=== PATIENT | female | born 1975 | race Two or more races ===

== ENCOUNTER 2017-02-23 08:57 | Emergency (ER) | payer OTHER ==
[2017-02-23 09:01] VITALS: BP 107/77; PULSE 74; TEMP 98.1; BMI 23.8
--- NOTE | 2017-02-23 09:23 | PDOC ---
History of Present Illness - General Chief Complaint: Pain, Acute Stated Complaint: RIGHT ABD PAIN Time Seen by Provider: 02/23/17 09:04 History Source: Patient Exam Limitations: No Limitations - History of Present Illness Travel History: No Initial Comments: 02/23/17 09:30 41y F no signfiicant pmhx presents with intermittent RLQ pain for about a month. The pt notes that the pain has been getting worse since tuesday in the RLQ and has been radiating to the flank and down to the groin, the pain does seem to wax and wane. She was taking ibuprofen initially with improvement of her pain but since tuesday it hasnt been as helpful. The pt endorsed mild nausea recently but non currently. no associated vomiting, diarrhea, dysuria, frequency. 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 Medical History Allergies/Adverse Reactions: Allergies Allergy/AdvReac Type Severity Reaction Status Date / Time No Known Allergies Allergy Verified 02/23/17 08:58 Home Medications: Ambulatory Orders NK [No Known Home Medication] 02/23/17 Other medical history: DENIES - Psycho/Social/Smoking Cessation Hx Anxiety: No Suicidal Ideation: No Smoking History: Never smoked Hx Alcohol Use: Yes Drug/Substance Use Hx: No Substance Use Type: Alcohol Review of Systems - Review of Systems Able to Perform ROS?: Yes Comments:: 02/23/17 09:33 Constitutional - no reported Fever, Chills, HEENT: no reported vision changes, sore throat Respiratory: no reported cough, sob, hemoptysis Cardiac: no reported chest pain, palpitations, light headedness, leg swelling Abd/GI: +abd pain, nausea, no reported vomiting, blood per rectum, melena, diarrhea : no reported dysuria, frequency, discharge Musculskelatal - no reported back pain, joint swelling skin - no reported bruising, erythema, rash neurological: no reported headache, numbness, focal weakness, tingling, ataxia, hematologic: no reported anemia, easy bruising, easy bleeding *Physical Exam - Vital Signs Last Vital Signs Temp Pulse Resp BP Pulse Ox 98.1 F 74 18 107/77 99 02/23/17 08:57 02/23/17 08:57 02/23/17 08:57 02/23/17 08:57 02/23/17 08:57 - Physical Exam Comments: 02/23/17 09:34 GENERAL: The patient is awake, alert, and fully oriented, Nontoxic - in no acute distress. HEAD: Normocephalic, atraumatic. EYES: extraocular movements intact, sclera anicteric, conjunctiva clear. ENT: Normal voice, Moist mucous membranes. NECK: Normal range of motion, supple LUNGS: Breath sounds equal, clear to auscultation bilaterally. No wheezes, no rhonchi, no rales. HEART: Regular rate and rhythm, normal S1 and S2 without murmur, rub or gallop. ABDOMEN: Soft, very mild rlq tenderness, normoactive bowel sounds. No guarding , no rebound. No CVA tenderness EXTREMITIES: Normal range of motion, no edema. No clubbing or cyanosis. No cords, erythema, or tenderness. NEUROLOGICAL: No facial assymetry, Normal speech, PSYCH: Normal mood, normal affect. SKIN: Warm, Dry, normal turgor, ED Treatment Course - LABORATORY CBC & Chemistry Diagram: 02/23/17 09:30 02/23/17 09:30 Medical Decision Making - Medical Decision Making 02/23/17 09:34 41y F no pmhx presents with RLQ pain that is intermittent w/o v/d, dysuira, f/c. on exam pt well appearing in no distress with mild RLQ tenderness suspect possible kidney stones due to duration of pain, doubt appendicitis will ck cbc, cmp, ua will r/o pt declines pain medications 02/23/17 10:10 pt does endorse the pain seems to be cyclicial but typically resolves with motrin but didnt today she has an appt with zain tomorrow @ [facility] 02/23/17 11:21 pts labs reviewd ua neative for hematuria pts abd pain still mild, repeat exam shows no tenderness. do not think this is consistent with appendicitis. discussed with patient, agrees and will defer more advanced imaging for now. obtain US shows complex cysts, possibly hemorraghic. will dc the pt to fu with her PMD tomorrow return precautions were discussed I discussed the physical exam findings, ancillary test results and final diagnoses with the patient. I answered all of the patient's questions. The patient was satisfied with the care received and felt comfortable with the discharge plan and treatment plan. The patient will call their primary care physician within 24 hours to arrange follow-up and will return to the Emergency Department with any new, persistent or worsening symptoms. *DC/Admit/Observation/Transfer Diagnosis at time of Disposition: Abdominal pain Qualifiers: Abdominal location: right lower quadrant Qualified Code(s): R10.31 - Right lower quadrant pain - Discharge Dispostion Disposition: HOME Condition at time of disposition: Improved Admit: No - Referrals Referrals: [facility] [Provider Group] - Patient Instructions Printed Discharge Instructions: DI for Abdominal Pain-Adult Additional Instructions: Return to the emergency department immediately with ANY new, persistent or worsening symptoms including any fevers, chills, nausea, vomiting, recurrent abdominal pain. Clinically I do not think your sypmtoms are consistent with appendicitis due to the recurrent and subacute duration and lack of fever, tenderness, if you have recurretn persistent/severe pain, return to the ED and we will pursue further imaging. You MUST call and follow up with your doctor tomorrow for further evaluation of your symptoms. Results were discussed with you. Please make sure your doctor reviews the results of your emergency evaluation.
[2017-02-23 09:37] LABS: URINE APPEARANCE Clear; URINE BILIRUBIN 1+ (NEGATIVE); URINE BLOOD Negative (NEGATIVE); URINE GLUCOSE (UA) Negative (NEGATIVE); URINE KETONE Negative (NEGATIVE); URINE NITRITE Negative (NEGATIVE); URINE PROTEIN Negative (NEGATIVE); URINE UROBILINOGEN 0.2 (0.2-1.0)
[2017-02-23 09:40] LABS: URINE COLOR YELLOW; URINE LEUK ESTERASE TRACE (NEGATIVE)
[2017-02-23 09:41] LABS: MCH 32.2 pg (25.7-33.7); MCHC 35.1 g/dl (32.0-36.0); MEAN CELL VOLUME 91.9 fl (80-96); MEAN PLT VOLUME 8.9 fl (7.5-11.1); NEUTROPHILS 44.4 % (42.8-82.8); PLATELET COUNT 171 K/MM3 (134-434); RDW 12.4 % (11.6-15.6); WHITE BLOOD COUNT 4.1 K/mm3 (4.0-10.8)
[2017-02-23 09:41] LABS: URINE BACTERIA FEW /hpf (NEGATIVE); URINE RBC 0-3 /hpf (0-3); URINE WBC 0-3 (3-5)
[2017-02-23 10:10] LABS: ALBUMIN 3.5 g/dl (3.5-5.0); ALK PHOS 52 U/L (32-92); BILIRUBIN,TOTAL 0.6 mg/dl (0.2-1.0); CREATININE 0.9 mg/dl (0.6-1.3); GLUCOSE,RANDOM 95 mg/dl (74-106); SGOT/AST 22 U/L (10-42); SGPT/ALT 18 U/L (10-40); TOT PROT 6.9 g/dl (6.4-8.3)
[2017-02-23 10:18] LABS: ANION GAP 5 (8-16); CALCIUM 9.1 mg/dl (8.4-10.2); CO2 25 mmol/L (22-28)
== END 2017-02-23 11:31 | disposition home or self-care (01) ==
LOC: FER 08:57
DX: R10.31 Right lower quadrant pain (principal)
CPT/HCPCS: 36415; 76830-TC; 80053; 81003; 81015; 84703; 85025; 99282-25

== ENCOUNTER 2017-03-03 13:02 | Emergency (ER) | payer OTHER ==
[2017-03-03 13:33] VITALS: BP 113/68; PULSE 107; TEMP 99.4; BMI 22.4
[2017-03-03 15:19] LABS: URINE APPEARANCE Clear; URINE BILIRUBIN 1+ (NEGATIVE); URINE GLUCOSE (UA) Negative (NEGATIVE); URINE KETONE 3+ (NEGATIVE); URINE NITRITE Negative (NEGATIVE); URINE PROTEIN Negative (NEGATIVE); URINE UROBILINOGEN 0.2 (0.2-1.0)
[2017-03-03 15:26] LABS: URINE BLOOD 3+ (NEGATIVE); URINE COLOR YELLOW; URINE LEUK ESTERASE 2+ (NEGATIVE)
[2017-03-03] MEDS ORDERED: SODIUM CHLORIDE 0.9% 1000 ML INFUS.BAG IV ONE (15:28)
[2017-03-03] MEDS ORDERED: ONDANSETRON 4 MG/2 ML VIAL IVPUSH ONE (15:28)
--- NOTE | 2017-03-03 15:36 | PDOC ---
History of Present Illness - General Chief Complaint: Pain Stated Complaint: ABDOMINAL PAIN FOR TWO WEEKS Time Seen by Provider: 03/03/17 13:04 History Source: Patient Exam Limitations: No Limitations - History of Present Illness Initial Comments: 03/03/17 15:32 The patient is a 41F with a PMH of diverticula who presents to the ED with worsening LLQ pain. The patient was seen here 1 week ago and was found to have hemorrhagic cysts on her ovaries, negative u-preg. The patient states that this pain has worsened overnight. She tried taking advil and gas x with no relief. She denies RLQ pain. 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, smoke, or use drugs Past History - Past Medical History Allergies/Adverse Reactions: Allergies Allergy/AdvReac Type Severity Reaction Status Date / Time No Known Allergies Allergy Verified 03/03/17 13:03 Home Medications: Ambulatory Orders Ciprofloxacin [Cipro -] 500 mg PO Q12H #14 tablet 03/03/17 Metronidazole [Flagyl -] 500 mg PO BID #14 tablet 03/03/17 Other medical history: OVAIRIAN CYSTS - Psycho/Social/Smoking Cessation Hx Anxiety: No Suicidal Ideation: No Smoking History: Never smoked Have you smoked in the past 12 months: No Information on smoking cessation initiated: No Hx Alcohol Use: No Drug/Substance Use Hx: No Substance Use Type: Alcohol Review of Systems - Review of Systems Able to Perform ROS?: Yes Is the patient limited Estonian proficient: No Constitutional: No: Chills, Fever Respiratory: No: Shortness of Breath Cardiac (ROS): No: Chest Pain ABD/GI: Yes: Nausea. No: Abd. Pain w/ defecation, Blood Streaked Bowels, Constipated, Diarrhea, Rectal Bleeding, Vomiting : No: Burning, Dysuria, Discharge, Pain Neurological: No: Headache, Numbness, Tingling, Weakness *Physical Exam - Vital Signs Last Vital Signs Temp Pulse Resp BP Pulse Ox 99.4 F 107 H 20 113/68 98 03/03/17 13:03 03/03/17 13:03 03/03/17 13:03 03/03/17 13:03 03/03/17 13:03 - Physical Exam General Appearance: Yes: Nourished, Appropriately Dressed. No: Apparent Distress HEENT: positive: Normal Voice, Hearing Grossly Normal Respiratory/Chest: positive: Lungs Clear, Normal Breath Sounds. negative: Chest Tender, Respiratory Distress, Labored Respiration, Rhonchi, Stridor, Wheezing Cardiovascular: positive: Regular Rhythm, Regular Rate, S1, S2. negative: Diastolic Murmur, Systolic Murmur Gastrointestinal/Abdominal: positive: Normal Bowel Sounds, Tender (LLQ), Flat, Soft, Other (L obturator sign positive). negative: Distended, Guarding, Rebound , Tenderness Musculoskeletal: negative: CVA Tenderness, CVA Tenderness (R), CVA Tenderness (L ) Extremity: positive: Normal Inspection, Normal Range of Motion Integumentary: positive: Dry, Warm. negative: Clammy, Ecchymosis Neurologic: positive: Fully Oriented, Alert, Normal Mood/Affect, Motor Strength 10/22 ED Treatment Course - LABORATORY CBC & Chemistry Diagram: 03/03/17 15:41 03/03/17 15:41 - ADDITIONAL ORDERS Additional order review: Laboratory Results 03/03/17 03/03/17 13:37 13:37 Urine Color Yellow Urine Appearance Clear Urine pH 7.0 Ur Specific [place] 1.020 Urine Protein Negative Urine Glucose (UA) Negative Urine Ketones 3+ H Urine Blood 3+ H Urine Nitrite Negative Urine Bilirubin 1+ H Urine Urobilinogen 0.2 Urine HCG, Qual Negative Medical Decision Making - Medical Decision Making 03/03/17 16:20 The patient is a 41F with a hx of diverticula who presents to the ED with LLQ pain. Her workup last week showed hemorrhagic cysts but the patient's pain has progressed. I have a low suspicion for appendicitis d/t the length of pain. I suspect diverticulitis. She is not peritoneal. I will send basic labs, UA, and have the patient do a CT with oral contrast. Will reassess when labs return. 03/03/17 17:20 UA shows 3+ blood. No WBC count. CMP WNL. 03/03/17 18:58 CT showing diverticulitis. Patient refuses blood cultures. No white count, afebrile. Patient will receive first does of abx and will be d/c with outpt abx. Patient agrees to plan and knows to return for fever, chills, nausea, vomiting, severe abd pain. *DC/Admit/Observation/Transfer Diagnosis at time of Disposition: Diverticulitis of intestine Qualifiers: Diverticulitis site: large intestine Diverticulitis bleeding: without bleeding Diverticulitis complication: without perforation or abscess Qualified Code(s): K57.32 - Diverticulitis of large intestine without perforation or abscess without bleeding - Discharge Dispostion Disposition: HOME Condition at time of disposition: Stable Admit: No - Prescriptions Prescriptions: Ciprofloxacin [Cipro -] 500 mg PO Q12H #14 tablet Metronidazole [Flagyl -] 500 mg PO BID #14 tablet - Patient Instructions Printed Discharge Instructions: Diverticulitis, DI for Diverticulitis Additional Instructions: Please return to the ER if symptoms progress, worsen, or if new symptoms arise. Please take your antibiotics as prescribed. Please return if your abdominal pain worsens, if you develop fever, chills, nausea, vomiting. Please follow up with your PCP w/in 2-3 days.
[2017-03-03] MEDS ORDERED: ONDANSETRON 4 MG/2 ML VIAL ONE ×2 (15:45→15:47)
[2017-03-03 16:56] LABS: BASOPHIL 0.9 % (0-2.0); EOSINOPHIL 0.2 % (0-4.5); MCH 31.4 pg (25.7-33.7); MEAN CELL VOLUME 92.2 fl (80-96); MEAN PLT VOLUME 10.2 fl (7.5-11.1); NEUTROPHILS 76.2 % (42.8-82.8); PLATELET COUNT 163 K/MM3 (134-434); RDW 12.5 % (11.6-15.6)
[2017-03-03 17:08] LABS: ALBUMIN 3.6 g/dl (3.5-5.0); ALK PHOS 56 U/L (32-92); ANION GAP 5 (8-16); CALCIUM 8.8 mg/dl (8.4-10.2); CO2 26 mmol/L (22-28); CREATININE 0.7 mg/dl (0.6-1.3); GLUCOSE,RANDOM 85 mg/dl (74-106); SGOT/AST 25 U/L (10-42); SGPT/ALT 23 U/L (10-40); TOT PROT 6.8 g/dl (6.4-8.3)
[2017-03-03] MEDS ORDERED: metroNIDAZOLE 250 MG TABLET PO ONE (18:52)
[2017-03-03] MEDS ORDERED: CIPROFLOXACIN 500 MG TABLET (RESTRICTED TO ID) PO ONE (18:52)
[2017-03-03] MEDS ORDERED: CIPROFLOXACIN 250 MG TABLET (RESTRICTED TO ID) PO ONE (19:08)
[2017-03-03] MEDS ORDERED: metroNIDAZOLE 250 MG TABLET ONE (19:08)
[2017-03-03 19:17] LABS: URINE BACTERIA MODERATE /hpf (NEGATIVE)
[2017-03-03 19:18] LABS: URINE MUCUS FEW
--- NOTE | 2017-03-04 11:45 | PDOC ---
Attending Attestation - Resident Resident Name: JosaloYared - ED Attending Attestation I have performed the following: I have examined & evaluated the patient, The case was reviewed & discussed with the resident, I agree w/resident's findings & plan, Exceptions are as noted - HPI HPI: The patient, a physician herself, walked in c/o lower abdominal pain, denies urinary, diarrhea or other GI symptoms Alert, oriented x 3 Physical exam : left lower abdominal pain, no rebound Working diagnosis Lwer abdominal tracie suspicion of diverticular disease Blood work , CT ordered 03/04/17 11:37 Patient d/c home on atbc and follow up with GI , advised to creturn anytime if worsening of symptoms 03/04/17 11:39 - Physicial Exam PE: Abdominal pain LLQ no rebound no bruits 03/04/17 11:52 - Critical Care Time Critical Care Statement: work up for diverticulitis - Medical Decision Making seeabove 03/04/17 11:46
== END 2017-03-03 19:12 | disposition home or self-care (01) ==
LOC: FER 13:02
PROC: 3E033GC Introduction of Other Therapeutic Substance into Peripheral Vein, Percutaneous Approach (ICD-10-PCS; principal; 2017-03-03)
PROC: 3E0337Z Introduction of Electrolytic and Water Balance Substance into Peripheral Vein, Percutaneous Approach (ICD-10-PCS; 2017-03-03)
DX: K57.32 Diverticulitis of large intestine without perforation or abscess without bleeding (principal)
CPT/HCPCS: 36415; 74177-TC; 80053; 81003; 81015; 83690; 84702; 84703; 85025; 99282-25